=== PATIENT | male | born 1985 | race Caucasian/White ===

== ENCOUNTER 2024-06-26 13:18 | Emergency (ER) | payer SELFPAY ==
--- NOTE | 2024-06-26 13:26 | XR_ITS ---
WS: [id number] Right hand, 3 views, 06/26/2024 Clinical Data: injury Comparison: None. Findings: There are comminuted fractures of the bases of the right second and third proximal phalange s. There is no significant displacement. The joint spaces are normal. No other fractures are seen. There is soft tissue swelling over the dorsum of the hand. XR/XR hand RT min 3V* [id number] Impression: Comminuted nondisplaced fractures of the right hand second and third proximal p halanges.
[2024-06-26 13:33] VITALS: BP 135/80; PULSE 66; TEMP 36.7; O2SAT 96; BMI 25.7
--- NOTE | 2024-06-26 13:41 | ED_ITS ---
HPI - Extremity Problem General: Chief complaint: Extremity Injury, Upper Stated complaint: rt hand inj Time Seen by Provider: 06/26/24 13:40 History of Present Illness: 39-year-old male who works at a [employer], presented with a hand injury sustained this morning. The injury occurred when the patient's hand was caught between two wooden blocks on a conveyor belt. The patient reports that the hand was not crushed or stuck for an extended period but was hit and bounced off. The injury is localized to the hand, with no other areas affected. The patient continued to work after the incident, using the arm to move blocks, which resulted in soreness in the wrist. The patient reports difficulty moving the index and third fingers, while the pinky and thumb are fine. There is swelling noted on the second, third, and fourth knuckles, with some bruising on the palm. The patient denies any recent illness, including cough, cold, fever, abdominal pain, nausea, vomiting, or diarrhea. The patient also denies chest pain and reports normal bowel and bladder function. Associated symptoms: Deny chest pain or fever(s) Related Data Previous Rx's Medication Instructions Recorded hydrocodone 5 mg-acetaminophen 325 1 tab PO Q6H PRN pain #20 tabs 06/26/24 mg tablet Review of Systems Const: Denies: fever(s) or chills Card: Denies: chest pain Resp: Denies: dyspnea GI: Denies: abdominal pain Musc: Reports: joint pain and joint swelling (Ecchymosis on the palm proximal to the MP joints of the second and third fi); Denies: neck pain or back pain Physical Exam Const: COMMON NORMALS: no acute distress GENERAL APPEARANCE: cooperative and comfortable ORIENTATION/CONSCIOUSNESS: Yes awake, Yes oriented to person, Yes oriented to place and Yes oriented to time HENMT: COMMON NORMALS: normocephalic, atraumatic and hearing grossly normal bilaterally HEAD & SCALP: normocephalic and atraumatic Resp: COMMON NORMALS: normal respiratory effort, No retractions, No use of accessory muscles and clear to auscultation bilaterally AUSCULTATION: clear to auscultation bilaterally Cardio: COMMON NORMALS: regular rate, regular rhythm and No murmurs present (Cardio) RATE: regular rate RHYTHM: regular rhythm Neuro: SENSORIUM/ORIENTATION: Yes oriented to person, Yes oriented to place and Yes oriented to time Course Vital Signs: Vital signs: Vital Signs Temperature 98.0 F 06/26/24 13:33 Pulse Rate 60 06/26/24 14:57 Blood Pressure 135/80 06/26/24 13:33 Pulse Oximetry 98 06/26/24 14:57 MDM - Extremity (Nontraumatic) Medical Decision Making Proximal phalanx fractures on these second and third finger of the right hand. Will place in a volar splint to extend past the fingertip. Will have the patient follow-up with orthopedics. Elevate ice as needed. No use of the right hand until cleared by orthopedics Lab Data Radiology Impressions Hand X-Ray 06/26/24 13:26 Impression: Comminuted nondisplaced fractures of the right hand second and third proximal phalanges. All radiology interpretation(s) finalized by discharge Discharge Plan Discharge Patient Disposition: Home Clinical Impression: Fracture of proximal phalanx of digit of right hand Condition: Stable Prescriptions: New hydrocodone-acetaminophen 5-325 mg tablet 1 tab PO Q6H PRN (Reason: pain) Qty: 20 0RF Discharge Orders: Discharge ED (Routine); Ordered 06/26/24 Ordered By: Gregg Rashid Discharge Diet: Usual diet Discharge Activity: Limit activity as instructed Patient Instructions: Opioid Safety, Pain Management Activity Restrictions/Additional Instructions: Thank you for choosing [facility] for your healthcare needs today. It is very important that you follow up as instructed or that you return to the Emergency Department should you have concerns or if your condition changes or worsens in any way. You were seen in the emergency room after a crush injury to your right hand. You have fractures of the second and third fingers. These are nondisplaced but will take some time to heal. You are placed in a splint to protect the fractures. You should not use your right hand and you should follow-up with orthopedics surgery. The orthopedic appointment will be scheduled by case management. They will contact you with the time and place. Coding Level of Care Code ED H[employer]cher for Kay Ceron
[2024-06-26 14:57] VITALS: PULSE 60; O2SAT 98
--- NOTE | 2024-06-29 08:37 | DCPLANNER ---
messaged ortho for er f/u
== END 2024-06-26 14:59 | disposition home or self-care (01) ==
PROVIDERS: Emergency Provider Family Medicine
DX: S62.610A Displaced fracture of proximal phalanx of right index finger, initial encounter for closed fracture (principal); S62.612A Displaced fracture of proximal phalanx of right middle finger, initial encounter for closed fracture; W23.0XXA Caught, crushed, jammed, or pinched between moving objects, initial encounter
CPT/HCPCS: 73130; 99283